=== PATIENT | female | born 1940 | race Caucasian/White ===

== ENCOUNTER 2017-05-06 22:23 | Emergency (ER) | payer MEDICARE, BC ==
[~2017-05-06] VITALS: Ht 162.6 cm; Wt 63.0 kg
[~2017-05-06 22:23] MED LIST: ADVI200C9 PO; ASPI81 PO; LEVA500T33 PO; MACR100C PO; OXYB5SYP PO; PHEN-426 PO; PIOG45 PO; SYNT25TA PO; TAMS0.4C67 PO; TOPR25TA2 PO; VASO10TA8 PO
[2017-05-06 22:34] VITALS: BP 153/88; PULSE 123; RESP 20; TEMP 99.7
--- NOTE | 2017-05-06 23:22 | PD ---
HPI Chief Complaint: Fever Time Seen by Provider: 22:57 Travel History International Travel<30 days: No Contact w/Intl Traveler<30days: No Traveled to known affect area: No History of Present Illness HPI The patient is a 76-year-old female who has a history of pancreatic cancer. She is followed at [facility] in [place]. She is on chemotherapy, chemotherapy to stimulate the immune response. Her temperature went as high as 101.9 at home today. She does have chills and nausea but no vomiting. She has a slight nonproductive cough. She denies any significant abdominal pain. She denies any dysuria, frequency or urgency or flank pain. Her oncologist at [facility] told her to go to the emergency department and get IV antibiotics. PFSH Past Medical History Cancer: No High Cholesterol: Yes Chemotherapy: Yes Diabetes: Yes Diminished Hearing: No Glaucoma: No Hepatitis: No Hiatal Hernia: No Hypertension: Yes Kidney Stones: Yes Thyroid Disease: Yes Past Surgical History Abdominal Surgery: Yes (APPENDECTOMY) Appendectomy: Yes Cardiac Surgery: No Ear Surgery: No Endocrine Surgery: No Eye Surgery: Yes (LASER LEFT EYE) Genitourinary Surgery: No Gynecologic Surgery: Yes (HYSTERECTOMY) Hysterectomy: Yes Oral Surgery: No Pacemaker: No Thoracic Surgery: No Social History Alcohol Use: Yes (OCCASIONAL) Tobacco Use: No Substance Use: No Allergies-Medications (Allergen,Severity, Reaction): Coded Allergies: codeine (Unverified Allergy, Severe, nausea, 05/07/17) nitrofurantoin (Unverified Allergy, Severe, nausea and chills, 05/07/17) Uncoded Allergies: SULFATES (Allergy, Unknown, unknown, 12/12/08) Reported Meds & Prescriptions Reported Meds & Active Scripts Active Reported Yervoy (Ipilimumab) 200 Mg/40 Ml (5 Mg/Ml) Vial Opdivo (Nivolumab) 100 Mg/10 Ml Inj IV EVERY 2 WEEKS Cotellic (Cobimetinib) 20 Mg Tab 60 Mg PO DAILY Pantoprazole (Pantoprazole Sodium) 40 Mg Tab 40 Mg PO DAILY Zenpep (Pancrelipase) 10,000-34,000-55,000 Units Cap 1 Cap PO TIDPC Lumigan Opth Drops (Bimatoprost) 0.01% Soln 1 Drop EACH EYE HS Aspirin Children's (Aspirin) 81 Mg Chew 81 Mg CHEW DAILY Simvastatin 40 Mg Tab 40 Mg PO HS Enalapril (Enalapril Maleate) 10 Mg Tab 10 Mg PO DAILY Lantus Inj (Insulin Glargine) 1,000 Unit/10 Ml Vial 14 Units SQ HS Novolog Inj (Insulin Aspart) 1,000 Unit/10 Ml Vial 1-9 Units SQ ACHS Max dose at bedtime:( )units; sugars less than 70,(0)units; sugars 150-199,(1) unit; sugars 200-249,(3) units; sugars 250-299,(5) units; sugars 300-349,(7) units; sugars greater than 349,(9) units Preservision Areds (Multiple Vitamins W/ Minerals) 1 Tab 1 Tab PO DAILY Metoprolol Tartrate 25 Mg Tab 25 Mg PO BID Review of Systems Except as stated in HPI: all other systems reviewed are Neg Physical Exam Narrative GENERAL: The patient is alert, oriented 3 in slight apparent distress with her nausea. Her vital signs show temperature 99.7 with heart rate 123 and blood pressure 153/88. Respirations are normal at 20. She is in no respiratory distress. SKIN: Focused skin assessment warm/dry. HEAD: Atraumatic. Normocephalic. EYES: Pupils equal and round. No scleral icterus. No injection or drainage. ENT: No nasal bleeding or discharge. Mucous membranes pink and moist. NECK: Trachea midline. No JVD. CARDIOVASCULAR: Regular rate and rhythm. No murmur appreciated. RESPIRATORY: No accessory muscle use. Clear to auscultation. Breath sounds equal bilaterally. GASTROINTESTINAL: Abdomen soft, non-tender, nondistended. Hepatic and splenic margins not palpable. No guarding or rebound is present. There is a scar from a hysterectomy and a scar from the partial pancreatectomy. MUSCULOSKELETAL: No obvious deformities. No clubbing. No cyanosis. No edema. NEUROLOGICAL: Awake and alert. No obvious cranial nerve deficits. Motor grossly within normal limits. Normal speech. PSYCHIATRIC: Appropriate mood and affect; insight and judgment normal. Data Data Last Documented VS Vital Signs Date Time Temp Pulse Resp B/P (MAP) Pulse Ox O2 Delivery O2 Flow Rate FiO2 05/07/17 00:22 100 20 96 05/07/17 00:22 101.0 175/82 (113) 05/07/17 00:22 Room Air Orders Orders Complete Blood Count With Diff (05/06/17 23:16) Comprehensive Metabolic Panel (05/06/17 23:16) Lactic Acid Sepsis Protocol (05/06/17 23:16) Magnesium (Mg) (05/06/17 23:16) Lipase (05/06/17 23:16) Urinalysis - C+S If Indicated (05/06/17 23:16) Blood Culture (05/06/17 23:16) Chest, Pa & Lat (05/06/17 23:16) Blood Glucose (05/06/17 23:16) Ecg Monitoring (05/06/17 23:16) Iv Access Insert/Monitor (05/06/17 23:16) Oximetry (05/06/17 23:16) Oxygen Administration (05/06/17 23:16) Acetaminophen (Tylenol) (05/07/17 00:30) Urine Culture (05/07/17 00:05) Piperacil-Tazo 4.5 Gm Premix (Zosyn 4.5 (05/07/17 01:00) Labs Laboratory Tests Test 05/06/17 23:20 05/07/17 00:05 White Blood Count 9.2 TH/MM3 Red Blood Count 3.89 MIL/MM3 Hemoglobin 11.7 GM/DL Hematocrit 35.2 % Mean Corpuscular Volume 90.5 FL Mean Corpuscular Hemoglobin 30.0 PG Mean Corpuscular Hemoglobin Concent 33.2 % Red Cell Distribution Width 13.7 % Platelet Count 326 TH/MM3 Mean Platelet Volume 7.8 FL Neutrophils (%) (Auto) 64.9 % Lymphocytes (%) (Auto) 12.7 % Monocytes (%) (Auto) 10.3 % Eosinophils (%) (Auto) 11.7 % Basophils (%) (Auto) 0.4 % Neutrophils # (Auto) 6.0 TH/MM3 Lymphocytes # (Auto) 1.2 TH/MM3 Monocytes # (Auto) 0.9 TH/MM3 Eosinophils # (Auto) 1.1 TH/MM3 Basophils # (Auto) 0.0 TH/MM3 CBC Comment DIFF FINAL Differential Comment Blood Urea Nitrogen 14 MG/DL Creatinine 0.96 MG/DL Random Glucose 140 MG/DL Total Protein 6.9 GM/DL Albumin 2.7 GM/DL Calcium Level 8.8 MG/DL Magnesium Level 1.7 MG/DL Alkaline Phosphatase 75 U/L Aspartate Amino Transf (AST/SGOT) 33 U/L Alanine Aminotransferase (ALT/SGPT) 24 U/L Total Bilirubin 0.2 MG/DL Sodium Level 136 MEQ/L Potassium Level 3.6 MEQ/L Chloride Level 99 MEQ/L Carbon Dioxide Level 29.9 MEQ/L Anion Gap 7 MEQ/L Estimat Glomerular Filtration Rate 57 ML/MIN Lactic Acid Level 1.8 mmol/L Lipase 113 U/L Urine Color YELLOW Urine Turbidity CLEAR Urine pH 5.5 Urine Specific [place] 1.014 Urine Protein NEG mg/dL Urine Glucose (UA) NEG mg/dL Urine Ketones NEG mg/dL Urine Occult Blood NEG Urine Nitrite NEG Urine Bilirubin NEG Urine Leukocyte Esterase SMALL Urine RBC 0-3 /hpf Urine WBC 15-19 /hpf Urine Squamous Epithelial Cells 0-5 /hpf Urine Bacteria OCC /hpf Microscopic Urinalysis Comment CULTURE INDICATED MDM Medical Decision Making Medical Screen Exam Complete: Yes Emergency Medical Condition: Yes Medical Record Reviewed: Yes Interpretation(s) The patient has a normal white count and normal absolute neutrophil count. The lactic acid is normal at 1.8. Differential Diagnosis Sepsis, neutropenia, urinary tract infection, electrolyte disorder, hypomagnesemia, hypo-/hyperglycemia, anemia Narrative Course The patient has normal counts a normal absolute neutrophil count with a normal lactic acid. She does have fever and tachycardia and fits criteria for sepsis. The source is not known. The patient impression is sepsis and will be transferred to [facility]. I discussed the patient with Dr. Brown, the patient will be transferred to [facility] in [place]. Sepsis Criteria SIRS Criteria (2 or more): Heart rate over 90 Diagnosis Primary Impression: Sepsis Additional Impression: Suppression of immune system subtherapeutic Keaton Nathan MD May 06, 2017 23:22
[2017-05-06 23:38] LABS: BASOPHIL % 0.4 % (0.0-2.0); EOSINOPHIL # 1.1 TH/MM3 (0-0.4); EOSINOPHIL % 11.7 % (0.0-4.0); HEMATOCRIT 35.2 % (35.0-46.0); HEMO FLAGS DIFF FINAL; LYMPH % 12.7 % (9.0-44.0); LYMPHOCYTE # 1.2 TH/MM3 (1.0-4.8); MEAN CELL VOLUME 90.5 FL (80.0-100.0); MEAN CORPUSCULAR HGB CONC 33.2 % (32.0-36.0); MONO % 10.3 % (0.0-8.0); NEUT % 64.9 % (16.0-70.0); PLATELET COUNT 326 TH/MM3 (150-450); RED BLOOD COUNT 3.89 MIL/MM3 (4.00-5.30); RED CELL DISTRIBUTION WIDTH 13.7 % (11.6-17.2); WHITE BLOOD COUNT 9.2 TH/MM3 (4.0-11.0)
[2017-05-06 23:47] LABS: CHLORIDE 99 MEQ/L (98-107); POTASSIUM 3.6 MEQ/L (3.5-5.1); SODIUM (NA) 136 MEQ/L (136-145)
[2017-05-06 23:50] LABS: ANION GAP 7 MEQ/L (5-15); BICARBONATE 29.9 MEQ/L (21.0-32.0); BLOOD UREA NITROGEN 14 MG/DL (7-18); MAGNESIUM 1.7 MG/DL (1.5-2.5)
[2017-05-06 23:53] LABS: ALT (GPT) 24 U/L (10-53); AST (GOT) 33 U/L (15-37); GLOMERULAR FILTRATION RATE 57 ML/MIN (>89)
[2017-05-06] MEDS ORDERED: ENAL10TA PO (23:54)
[2017-05-06] MEDS ORDERED: [UNRECOGNIZED DRUG - CODE] (23:54)
[2017-05-06] MEDS ORDERED: PANT40TA3 PO (23:54)
[2017-05-06] MEDS ORDERED: NOVOLOGP2 SQ (23:54)
[2017-05-06] MEDS ORDERED: ASPI81CH7 CHEW (23:54)
[2017-05-06] MEDS ORDERED: LUMI0.01 EACH EYE (23:54)
[2017-05-06] MEDS ORDERED: METO25TA3 PO (23:54)
[2017-05-06] MEDS ORDERED: [UNRECOGNIZED DRUG - CODE] PO (23:54)
[2017-05-06] MEDS ORDERED: LANTUS2P SQ (23:54)
[2017-05-06] MEDS ORDERED: ZENP1000 PO (23:54)
[2017-05-06] MEDS ORDERED: NIVO4INJ IV (23:54)
[2017-05-06] MEDS ORDERED: SIMV40TA PO (23:54)
[2017-05-06] MEDS ORDERED: OCUVTAB4 PO (23:54)
[2017-05-06 23:55] LABS: TOTAL BILIRUBIN ADULT 0.2 MG/DL (0.2-1.0)
[2017-05-06 23:56] LABS: ALKALINE PHOSPHATASE 75 U/L (45-117)
--- NOTE | 2017-05-06 23:58 | RADRPT ---
EXAM DATE/TIME: 05/06/2017 23:36 [place] COMPARISON: No previous studies available for comparison. INDICATIONS : Fever MEDICAL HISTORY : Diabetes mellitus type II. Carcinoma, pancreas. SURGICAL HISTORY : Splenectomy. Port ENCOUNTER: Initial ACUITY: 2 days PAIN SCORE: 0/10 LOCATION: Bilateral chest FINDINGS: AP and lateral views of the chest demonstrate a normal-sized cardiac silhouette. Right chest wall Inf use-a-Port is present with distal tip at the cavoatrial junction. No pleural effusion, airspace conso lidation, or pneumothorax is identified. The bones and soft tissues demonstrate no acute finding. The re are degenerative changes of the thoracic spine. CONCLUSION: No acute cardiopulmonary abnormality is identified. He Jones MD on May 06, 2017 at 23:56 Board Certified Radiologist. This report was verified electronically.
[2017-05-07 00:22] VITALS: BP 175/82; PULSE 93; PULSE 96; RESP 20; TEMP 101; O2SAT 95; O2SAT 96
[2017-05-07 00:22] LABS: BLOOD, URINE NEG (NEG); GLUCOSE,URINE NEG (NEG); KETONE, URINE NEG (NEG); NITRITE,URINE NEG (NEG); PH, URINE 5.5 (5.0-8.5)
[2017-05-07] MEDS ORDERED: ACETAMINOPHEN 500 MG CPLT PO ONE (00:30)
[2017-05-07 00:33] LABS: URINE COLOR YELLOW (YELLW/STRAW)
[2017-05-07 00:34] LABS: BACTERIA, URINE OCC /hpf; COMMENT (UR) CULTURE INDICATED; CULTURE IF INDICATED CULTURE INDICATED; RBC, URINE 0-3 /hpf (0-3); SQUAMOUS EPITHELIAL CELL URINE 0-5 /hpf (0-5); WBC, URINE 15-19 /hpf (0-5)
[2017-05-07] MEDS ORDERED: PIPERACIL-TAZO 4.5 GM PREMIX 100 ML IV ONE (01:00)
[2017-05-07 01:30] VITALS: BP 159/85; PULSE 90; RESP 20; TEMP 99.4; O2SAT 94
[2017-05-07] MEDS ORDERED: VANCOMYCIN INJ 1,250 MG in SODIUM CHLOR 0.9% 250 ML INJ 250 ML IV ONE (01:45)
[2017-05-07 02:13] VITALS: BP 143/80; PULSE 90; RESP 20; O2SAT 95
[2017-05-07] MEDS ORDERED: SODIUM CHLOR 0.9% 1000 ML INJ 1,000 ML IV SCH (02:15)
[2017-05-07 03:10] VITALS: BP_SYST 115; BP_SYST 122; BP_DIAS 61; BP_DIAS 70; PULSE 78; PULSE 87; RESP 20; TEMP 99.2; O2SAT 99
[2017-05-07 04:10] VITALS: BP 122/61; PULSE 87; RESP 20; TEMP 99.2; O2SAT 99
[2017-05-07 04:40] VITALS: BP 128/74
== END 2017-05-07 05:00 | disposition short-term general hospital (02) ==
LOC: PHED 22:23
DX: A41.9 Sepsis, unspecified organism (principal); C25.9 Malignant neoplasm of pancreas, unspecified; Z92.25 Personal history of immunosuppression therapy; E11.9 Type 2 diabetes mellitus without complications; I10 Essential (primary) hypertension; E07.9 Disorder of thyroid, unspecified
CPT/HCPCS: 71020; 80053; 81001; 83605; 83690; 83735; 85025; 87040; 87086; 96365; 96368; 99284; J2543; J3370; J7030; J7050